=== PATIENT | female | born 1955 | race Caucasian/White ===

== ENCOUNTER 2019-03-23 08:33 | Outpatient (CLI) | payer BC ==
[2019-03-23 09:48] LABS: Hemoglobin 12.6 g/dL (12.0-16.0); Mean Corpuscular HGB CONC 33.3 g/dL (32.0-36.0); Mean Corpuscular Hemoglobin 32.7 pg (27.0-31.0); Mean Corpuscular Volume 98.3 fL (78.0-98.0); Mean Platelet Volume 8.1 fL (7.4-10.4); Platelet Count 179 thou/uL (130-400); RBC Distribution Width 11.7 % (11.5-14.5); Red Blood Cell (RBC) Count 3.84 mill/uL (4.20-5.40); White Blood Cell (WBC) Count 4.5 thou/uL (4.8-10.8)
[2019-03-23 10:47] LABS: Chloride 106 mmol/L (98-107); Potassium 4.3 mmol/L (3.5-5.1); Sodium 140 mmol/L (136-145)
[2019-03-23 10:48] LABS: Calcium 9.6 mg/dL (7.8-10.44); Glucose 105 mg/dL (80-115)
[2019-03-23 10:50] LABS: Anion Gap 14 mmol/L (10-20); Carbon Dioxide 24 mmol/L (23-31)
[2019-03-23 10:52] LABS: Calc. Creatinine Clearance 0 mL/min (70-130); Estimated GFR-MDRD 79
[2019-03-23 10:53] LABS: BUN (Urea Nitrogen) 12 mg/dL (9.8-20.1)
== END 2019-03-23 08:34 | disposition home or self-care (01) ==
LOC: LABBT 08:33
PROVIDERS: ATTEND Orthopaedic Surgery
DX: Z01.818 Encounter for other preprocedural examination (principal); G57.61 Lesion of plantar nerve, right lower limb
CPT/HCPCS: 80048; 85027; 93005; 93010

== ENCOUNTER 2019-04-01 09:45 | Day surgery (SDC) | payer BC ==
[2019-03-23 08:42] VITALS: BMI 43.9
[2019-04-01] MEDS ORDERED: Bupivacaine PF 0.5% 30 ML VIAL ONE (11:40)
[2019-04-01] MEDS ORDERED: Neomycin-Polymyxin 1 ML AMP ONE (11:40)
[2019-04-01] MEDS ORDERED: Fentanyl 100 MCG/2 ML VIAL ONE ×2 (12:39→13:40)
[2019-04-01] MEDS ORDERED: Midazolam HCl 2 mg/2 ml Vial ONE (12:40)
--- NOTE | 2019-04-02 13:28 | OP ---
DATE OF PROCEDURE: 04/01/2019 PREOPERATIVE DIAGNOSIS: Right foot Morin's neuroma. POSTOPERATIVE DIAGNOSIS: Right foot Morin's neuroma. PROCEDURE PERFORMED: Excision of Morin's neuroma, right foot, third interdigital space. ANESTHESIA: General. COMPLICATION: None. CONDITION: Good. ESTIMATED BLOOD LOSS: Minimal. DRAINS: None. TOURNIQUET: Per Anesthesia. TECHNIQUE: Simple stain. DESCRIPTION OF PROCEDURE: The patient was taken to the operating room, placed in supine position. After adequate general anesthesia achieved, the patient's right foot and ankle were positioned, prepped, and draped in usual sterile fashion. Tourniquet was placed in supramalleolar area, and foot and ankle were elevated, exsanguinated and tourniquet was inflated prior to incision. A dorsal 2 cm incision made directly over the third interspace and taken down subcutaneous tissues, carefully dissecting down to the intermetatarsal ligament. This was released. The patient had fairly significant amount of fibrotic material and extremely tight intermetatarsal space. This was exposed through a lamina caterpillar tractor operator, and the nerve was easily identified. There was some moderate diffuse swelling, and the nerve was dissected proximal and resected, then dissected distally and resected distal to the bifurcation. This was completed, it was sent for specimen. It was irrigated copiously. Tourniquet was released. Hemostasis was obtained. The skin was closed with some 4-0 nylon. Sterile bulky dressing was applied. The patient was taken to recovery. PROGNOSIS: Good. Job ID: [id number]
== END 2019-04-01 15:20 | disposition home or self-care (01) ==
LOC: SDC 09:45
PROVIDERS: ATTEND Orthopaedic Surgery
PROC: 01BG0ZZ Excision of Tibial Nerve, Open Approach (ICD-10-PCS; principal; 2019-04-01)
DX: G57.61 Lesion of plantar nerve, right lower limb (principal)
CPT/HCPCS: 88304; J0131; J0690; J2250; J3010; S0020

== ENCOUNTER 2020-02-15 10:25 | Outpatient (CLI) | payer BC ==
--- NOTE | 2020-02-15 11:13 | MMO ---
Bilateral MAMMO Bilat Diag DDI+ANOOP. CLINICAL HISTORY: Patient is 64 years old and is seen for diagnostic exam. VIEWS: The views performed were: . FILMS COMPARED: The present examination has been compared to prior imaging studies performed at [facility] on 11/24/2007 and 12/01/2007. This study has been interpreted with the assistance of computer-aided detection. MAMMOGRAM FINDINGS: There are scattered fibroglandular densities. Finding 1: There is an equal density, oval mass with circumscribed margins seen in the sub-areolar region of the right breast. This is slightly decreased in size with respect to prior. Finding 2: There are vascular calcifications seen in both breasts. There are no suspicious masses, suspicious calcifications, or new areas of architectural distortion. IMPRESSION: THERE IS NO MAMMOGRAPHIC EVIDENCE OF MALIGNANCY. A ROUTINE FOLLOW-UP MAMMOGRAM IN 1 YEAR IS RECOMMENDED. THE RESULTS OF THIS EXAM WERE SENT TO THE PATIENT. ACR BI-RADS Category 2 - Benign finding MAMMOGRAPHY NOTE: 1. A negative mammogram report should not delay a biopsy if a dominant of clinically suspicious mass is present. 2. Approximately 10% to 15% of breast cancers are not detected by mammography. 3. Adenosis and dense breasts may obscure an underlying neoplasm. Reported by: JAELYN CLARKE MD Electonically Signed: [id number]
== END 2020-02-15 10:26 | disposition home or self-care (01) ==
LOC: BICMAMMO 10:25 → MERGE 10:25 → BICMAMMO 10:26
PROVIDERS: ATTEND Family Medicine
DX: R92.8 Other abnormal and inconclusive findings on diagnostic imaging of breast (principal)
CPT/HCPCS: 77066; G0279

== ENCOUNTER 2022-06-19 08:22 | Outpatient (CLI) | payer MEDICARE | END 2022-06-19 08:23 | disposition home or self-care (01) | LOC: BICMAMMO 08:22 | PROVIDERS: ATTEND Family Medicine | DX: Z12.31 Encounter for screening mammogram for malignant neoplasm of breast (principal); Z13.820 Encounter for screening for osteoporosis; M85.89 Other specified disorders of bone density and structure, multiple sites; Z78.0 Asymptomatic menopausal state; Z80.3 Family history of malignant neoplasm of breast | CPT/HCPCS: 77063; 77067; 77080 ==

== ENCOUNTER 2023-01-26 08:50 | Outpatient (CLI) | payer MEDICARE, BC | END 2023-01-26 08:51 | disposition home or self-care (01) | LOC: BICRAD 08:50 | PROVIDERS: ATTEND Internal Medicine Rheumatology | DX: M46.1 Sacroiliitis, not elsewhere classified (principal); M54.50 Low back pain, unspecified; M47.816 Spondylosis without myelopathy or radiculopathy, lumbar region | CPT/HCPCS: 72110 ==

== ENCOUNTER 2024-06-23 07:38 | Outpatient (CLI) | payer MEDICARE, BC | END 2024-06-23 07:39 | disposition home or self-care (01) | LOC: CT 07:38 | PROVIDERS: ATTEND Family Medicine | DX: R31.9 Hematuria, unspecified (principal) | CPT/HCPCS: 36415; 74178; 82565 ==

== ENCOUNTER 2025-09-26 08:06 | Outpatient (CLI) | payer MEDICARE, OTHER | END 2025-09-26 08:07 | disposition home or self-care (01) | LOC: BICMAMMO 08:06 | PROVIDERS: ATTEND Physician Assistant | DX: Z12.31 Encounter for screening mammogram for malignant neoplasm of breast (principal); Z80.3 Family history of malignant neoplasm of breast | CPT/HCPCS: 77063; 77067 ==